=== PATIENT | male | born 1995 | race Two or more races ===

== ENCOUNTER 2017-05-30 17:33 | Emergency (ER) | payer OTHER ==
--- NOTE | 2017-05-30 19:05 | ED ---
Throat Pain/Nasal Congestion - HPI Summary HPI Summary: Patient presents to the ED after sustaining a trauma to the inner ear proximally 5 hours prior to arrival. He states he was cleaning his ear with a Q -tip when he bumped his arm protruding the Q-tip further into the ear canal. He states there was no immediate lot, but endorses immediate pain at 9 out of 10 which is now decreased to 1 out of 10. Endorses decreased hearing. After coughing prior to arrival, the ear began to bleed some serosanguineous fluid. He denies any white discharge. - History of Current Complaint Chief Complaint: EDEarPain Time Seen by Provider: 05/30/17 18:01 Hx Obtained From: Patient Onset/Duration: Gradual Onset Severity: Mild - Epiglottits Risk Factors Epiglottis Risk Factors: Negative - Allergies/Home Medications Allergies/Adverse Reactions: Allergies Allergy/AdvReac Type Severity Reaction Status Date / Time No Known Allergies Allergy Verified 05/30/17 17:52 PMH/Surg Hx/FS Hx/Imm Hx Previously Healthy: Yes - Immunization History Hx Pertussis Vaccination: No Immunizations Up to Date: Unable to Obtain/Confirm Infectious Disease History: No Infectious Disease History: Denies: Traveled Outside the [place] in Last 30 Days - Social History Occupation: Employed Full-time Lives: With Family Alcohol Use: None Hx Substance Use: No Substance Use Type: Reports: None Hx Tobacco Use: No Smoking Status (MU): Never Smoked Tobacco Review of Systems Constitutional: Negative Negative: Fever, Chills, Fatigue, Skin Diaphoresis Eyes: Negative - left Positive: Ear Ache Cardiovascular: Negative Respiratory: Negative Positive: no symptoms reported, see HPI Musculoskeletal: Negative Neurological: Negative All Other Systems Reviewed And Are Negative: Yes Physical Exam Triage Information Reviewed: Yes Vital Signs On Initial Exam: Initial Vitals Temp Pulse Resp BP Pulse Ox 98.4 F 81 17 132/68 98 05/30/17 17:49 05/30/17 17:49 05/30/17 17:49 05/30/17 17:49 05/30/17 17:49 Vital Signs Reviewed: Yes Appearance: Positive: Well-Appearing, Well-Nourished Skin: Positive: Skin Color Reflects Adequate Perfusion Head/Face: Positive: Normal Head/Face Inspection Eyes: Positive: EOMI, LEONIDES, Conjunctiva Clear ENT: Positive: Hearing grossly normal - Decreased hearing to the left ear, Pharynx normal, Other - Bleeding from the ear canal with no obvious laceration or lesion to the canal, it appears that there may be a small perforation located in the anterior quadrant, but this is difficult to assess due to bleeding. Neck: Positive: Supple, No Lymphadenopathy Respiratory/Lung Sounds: Positive: Clear to Auscultation, Breath Sounds Present Cardiovascular: Positive: Pulses are Symmetrical in both Upper and Lower Extremities Musculoskeletal: Positive: Strength/ROM Intact Neurological: Positive: Speech Normal Psychiatric: Positive: Affect/Mood Appropriate Diagnostics - Vital Signs Vital Signs Temp Pulse Resp BP Pulse Ox 05/30/17 17:49 98.4 F 81 17 132/68 98 - Laboratory Lab Statement: Any lab studies that have been ordered have been reviewed, and results considered in the medical decision making process. EENT Course/Dx - Course Course Of Treatment: During the course of treatment the patient is evaluated for a possible tympanic membrane perforation from a self-inflicted trauma from a Q-tip. Bleeding from the ear canal with no obvious laceration or lesion to the canal, it appears that there may be a small perforation located in the anterior quadrant, but this is difficult to assess due to bleeding. Unable to examine the ear well enough to assess for skin entrapment to the undersurface of the TM. Auditory status prior to trauma was normal. He endorses only slight decrease hearing to the left side. Bleeding is controlled and was successfully cleaned out with a wet Q-tip. I have advised no antibiotics at this time and to use cotton swab and follow-up with ENT next week. He agrees with this plan is okay for discharge. - Differential Diagnoses Differential Diagnoses: Other - Trauma - Diagnoses Provider Diagnoses: Tympanic membrane perforation Discharge - Discharge Plan Condition: Stable Disposition: HOME Patient Education Materials: Ruptured Eardrum (ED) Referrals: Vinay El MD [Medical Doctor] - [facility] - Jose CARRIZALES [Primary Care Provider] - Additional Instructions: Please follow up with ENT Tylenol 650 mg 3 times daily for any discomfort Keep cotton swab applied at least when you are showering Do not allow the inner ear to become wet
[2017-05-30 19:13] VITALS: BP 130/62
== END 2017-05-30 19:12 | disposition home or self-care (01) ==
LOC: ED 17:33
DX: H72.92 Unspecified perforation of tympanic membrane, left ear (principal)
CPT/HCPCS: 99282